=== PATIENT | female | born 1940 | race Caucasian/White ===

== ENCOUNTER 2017-10-28 13:24 | Emergency (ER) | payer OTHER ==
[2017-10-28] MEDS: ALPRAZolam 0.5 MG TAB PO (14:46)
== END 2017-10-28 15:36 | disposition home or self-care (01) ==
LOC: M ED 13:24
DX: F43.0 Acute stress reaction (principal); F41.1 Generalized anxiety disorder; I11.9 Hypertensive heart disease without heart failure; K21.9 Gastro-esophageal reflux disease without esophagitis; F99 Mental disorder, not otherwise specified; Z87.891 Personal history of nicotine dependence; Z88.2 Allergy status to sulfonamides; Z88.8 Allergy status to other drugs, medicaments and biological substances; Z79.899 Other long term (current) drug therapy
CPT/HCPCS: 99284

== ENCOUNTER 2024-07-14 18:43 | Emergency (ER) | payer MEDICARE, OTHER ==
[~2024-07-14 18:43] MED LIST: AMLO10TA PO; CALC1TAB21 PO; CEFD1CAP9 PO; CLON-952 PO; CRAN250T PO; EVIS1TAB PO; FERR325T3 PO; FISH100049 PO; FLUO40CA PO; HYDR50TA70; KLON0.5T8 PO; LEVO175T19 PO; MELO7.5T7; METO1TAB63 PO; OMEP1CAP73 PO; RANI75TA15 PO; REME45TA PO; SERT25TA21; SIMV20TA22 PO; VITMTA PO
[2024-07-14 22:04] VITALS: BP 156/69; TEMP 98.5; O2SAT 97
== END 2024-07-14 22:05 | disposition home or self-care (01) ==
LOC: EDBD 18:43 → M ED 18:43
DX: F32.A Depression, unspecified (principal); K21.9 Gastro-esophageal reflux disease without esophagitis; I10 Essential (primary) hypertension; F32.9 Major depressive disorder, single episode, unspecified; Z88.2 Allergy status to sulfonamides; Z88.8 Allergy status to other drugs, medicaments and biological substances; Z79.899 Other long term (current) drug therapy

== ENCOUNTER 2024-08-04 16:38 | Observation (INO) | payer MEDICARE, MEDICAID ==
[~2024-08-04] VITALS: Ht 149.9 cm; Wt 63.0 kg
[~2024-08-04 16:38] MED LIST changes: +AMLO-751 PO; -AMLO10TA PO
[2024-08-04 17:11] LABS: BASO % 0.1 % (0.0-1.0); EOS # 0.2 10^3/uL (0.0-0.5); EOS % 2.2 % (0.0-3.0); HEMATOCRIT 34.7 % (36.0-47.0); HEMOGLOBIN 10.4 g/dl (12.0-15.5); LYMPH # 1.7 10^3/uL (1.5-5.0); LYMPH % 22.9 % (24.0-44.0); MEAN CORPUSCULAR HEMOGLOBIN 21.5 pg (27.0-33.0); MEAN CORPUSCULAR VOLUME 71.8 fl (80.0-96.0); MONO # 0.5 10^3/uL (0.0-0.8); MONO % 7.4 % (2.0-8.0); NEUTROPHILS # 4.9 10^3/uL (1.5-8.5); NEUTROPHILS % 67.1 % (36.0-66.0); PLATELET COUNT, AUTOMATED 161 10^3/uL (150-450); RED BLOOD COUNT 4.83 10^6/uL (4.00-5.40); WHITE BLOOD COUNT 7.3 10^3/uL (4.0-10.0)
[2024-08-04] MEDS: NS 500 ML IV ONE ×3 (17:15→19:05)
[2024-08-04 17:29] LABS: ABG BASE EXCESS 3.3 (-2.0-2.0); ABG HCO3 27.3 MMOL/L (22.0-26.0); ABG O2 SATURATION 96.9 % (95.0-99.0); ABG PARTIAL PRESSURE CO2 39.2 mmHg (35.0-45.0); ABG PARTIAL PRESSURE O2 89.2 mmHg (75.0-100.0); ABG STANDARD HCO3 27.4 MMOL/L. (22.0-26.0); ABG TOTAL CO2 28.5 MMOL/L (23.0-31.0); ABG pH (ARTERIAL) 7.461 UNITS (7.350-7.450)
[2024-08-04] MEDS: CHARCOAL ACTIVATED LIQUID 25GM/120ML BTL PO ONE (17:34)
[2024-08-04 17:38] LABS: AMPHETAMINES LEVEL URINE NEGATIVE (NEGATIVE); BARBITURATES URINE NEGATIVE (NEGATIVE); CANNABINOIDS URINE NEGATIVE (NEGATIVE); COCAINE METABOLITE URINE NEGATIVE (NEGATIVE); PHENCYCLIDINE URINE NEGATIVE (NEGATIVE)
[2024-08-04 17:38] LABS: ETHYL ALCOHOL (ETHANOL) < 0.003 % (0.000-0.010)
[2024-08-04 17:39] LABS: BENZODIAZEPINES URINE NEGATIVE (NEGATIVE); METHADONE URINE NEGATIVE (NEGATIVE); OPIATES URINE NEGATIVE (NEGATIVE)
[2024-08-04 17:40] LABS: CPK CREATINE PHOSPHOKINASE 41 U/L (34-145); SALICYLATE LEVEL < 3.0 MG/DL (<30)
[2024-08-04 17:42] LABS: THYROID STIMULATING HORMONE 0.042 uIU/ML (0.55-4.78)
[2024-08-04 17:50] LABS: ALBUMIN 3.5 G/DL (3.2-5.2); ALKALINE PHOSPHATASE 127 U/L (35-104); ALT/SGPT 35 U/L (7.0-40); AST/SGOT 41 U/L (<34); BILIRUBIN,DIRECT < 0.1 MG/DL (<0.4); BILIRUBIN,TOTAL 0.6 MG/DL (0.3-1.2); BLOOD UREA NITROGEN 10 MG/DL (9-23); CALCIUM LEVEL 9.2 MG/DL (8.3-10.6); CARBON DIOXIDE LEVEL 27 MMOL/L (20-31); CHLORIDE LEVEL 106 MMOL/L (98-107); CK-MB VALUE MASS < 1.0 NG/ML (<3.6); CREATININE FOR GFR 0.45 MG/DL (0.55-1.30); GLOMERULAR FILTRATION RATE > 90.0 (>32); GLUCOSE, FASTING 111 MG/DL (74-106); MAGNESIUM LEVEL 1.9 MG/DL (1.8-2.4); MB/CK RELATIVE INDEX 2.43 (< OR =4); POTASSIUM SERUM 4.2 MMOL/L (3.5-5.1); SODIUM LEVEL 142 MMOL/L (136-145); TOTAL PROTEIN 6.7 G/DL (5.7-8.2)
[2024-08-04] MEDS: MAG SULF 1GM/100ML (MAG RUN) 1 GM in IV 1 EA IV ONE (19:13)
[2024-08-04 20:05] LABS: CK-MB VALUE MASS < 1.0 NG/ML (<3.6)
[2024-08-04 20:14] LABS: CPK CREATINE PHOSPHOKINASE 31 U/L (34-145); MB/CK RELATIVE INDEX 3.22 (< OR =4)
[2024-08-04] MEDS ORDERED: CLON0.5T2 PO (20:47)
[2024-08-04] MEDS ORDERED: LEVO300T21 PO (20:47)
[2024-08-04] MEDS ORDERED: HOME MED LIST COMPLETE! XX SCH (20:50)
[2024-08-04 23:30] VITALS: BP 118/55; TEMP 98.1; O2SAT 94
[2024-08-05 03:47] VITALS: BP 102/46; TEMP 98.4; O2SAT 97
[2024-08-05 03:49] LABS: HEMATOCRIT 31.9 % (36.0-47.0); HEMOGLOBIN 9.2 g/dl (12.0-15.5); MEAN CORPUSCULAR HGB CONC 28.8 g/dl (32.0-36.5); MEAN CORPUSCULAR VOLUME 72.7 fl (80.0-96.0); PLATELET COUNT, AUTOMATED 135 10^3/uL (150-450); RED BLOOD COUNT 4.39 10^6/uL (4.00-5.40); WHITE BLOOD COUNT 6.7 10^3/uL (4.0-10.0)
[2024-08-05 04:40] LABS: BLOOD UREA NITROGEN 9 MG/DL (9-23); CALCIUM LEVEL 8.7 MG/DL (8.3-10.6); CARBON DIOXIDE LEVEL 26 MMOL/L (20-31); CHLORIDE LEVEL 107 MMOL/L (98-107); CREATININE FOR GFR 0.44 MG/DL (0.55-1.30); GLOMERULAR FILTRATION RATE > 90.0 (>32); GLUCOSE, FASTING 106 MG/DL (74-106); MAGNESIUM LEVEL 2.4 MG/DL (1.8-2.4); SODIUM LEVEL 143 MMOL/L (136-145)
[2024-08-05] MEDS: LEVOTHYROXINE 150MCG TABLET (0.15MG) PO SCH (05:30)
[2024-08-05] MEDS: ENOXAPARIN 40MG/0.4ML SYRINGE (J1650 PER 10MG) SC SCH (09:00)
[2024-08-05 12:00] VITALS: BP 142/53; TEMP 98.1; O2SAT 96
[2024-08-05] MEDS: MIRALAX *UNIT DOSE* 17GM PACKET PO SCH (15:07)
[2024-08-05 20:27] VITALS: BP 141/84; TEMP 98.4; O2SAT 98
[2024-08-06 02:55] VITALS: BP 143/56; TEMP 97.9; O2SAT 96
[2024-08-06 03:21] LABS: AMORPHOUS SEDIMENT SMALL (NEGATIVE); APPEARANCE, URINE HAZY (CLEAR); BACTERIA, URINE AUTO NEGATIVE (NEGATIVE); BILIRUBIN, URINE AUTO NEGATIVE (NEGATIVE); BLOOD, URINE BLOOD NEGATIVE (NEGATIVE); COLOR, URINE YELLOW (YELLOW); GLUCOSE, URINE (UA) AUTO NEGATIVE (NEGATIVE); KETONE, URINE AUTO NEGATIVE (NEGATIVE); LEUKOCYTE ESTERASE, URINE AUTO TRACE (NEGATIVE); MUCUS, URINE SMALL (NEGATIVE); NITRITE, URINE AUTO NEGATIVE (NEGATIVE); PROTEIN, URINE AUTO NEGATIVE (NEGATIVE); RBC, URINE AUTO 1 /HPF (0-3); SPECIFIC GRAVITY URINE AUTO 1.015 (1.002-1.035); SQUAMOUS EPITHELIAL CELL UR AU 2 /HPF (0-6); UROBILINOGEN, URINE AUTO 0.2 mg/dL (0.0-2.0); WBC, URINE AUTO 6 /HPF (0-3)
[2024-08-06 12:00] VITALS: BP 157/70; TEMP 97.3; O2SAT 98
[2024-08-06 15:33] VITALS: BP 151/68; TEMP 97.9; O2SAT 97
[2024-08-06] MEDS ORDERED: CLON0.5T17 PO (22:18)
== END 2024-08-06 15:58 ==
LOC: M ED 16:38 → EDBD 16:38 → M ED INP 16:39 → M MSPAV 23:32
PROVIDERS: ADMIT Family Medicine; ATTEND Internal Medicine
DX: T14.91XA Suicide attempt, initial encounter (principal); T42.4X2A Poisoning by benzodiazepines, intentional self-harm, initial encounter; T43.292A Poisoning by other antidepressants, intentional self-harm, initial encounter; I45.81 Long QT syndrome; R45.851 Suicidal ideations; F41.9 Anxiety disorder, unspecified; F32.A Depression, unspecified; E03.9 Hypothyroidism, unspecified; I10 Essential (primary) hypertension; E78.5 Hyperlipidemia, unspecified; K21.9 Gastro-esophageal reflux disease without esophagitis; N39.0 Urinary tract infection, site not specified; Z79.899 Other long term (current) drug therapy
CPT/HCPCS: 36415; 36600; 51702; 80048; 80076; 80143; 80307; 81001; 82077; 82550; 82553; 82803; 83735; 84443; 84484; 85025; 85027; 93005; 93041; 94760; 96361; 96372; 96374; 96376; 97161; 97165; 97530; 97535; 99285; G0378; J1650; J3475

== ENCOUNTER 2024-08-06 12:14 | Inpatient (IN) | payer MEDICARE, MEDICAID ==
[~2024-08-06] VITALS: Ht 149.9 cm; Wt 61.4 kg
[~2024-08-06 12:14] MED LIST changes: +CLON0.5T2 PO; +LEVO300T21 PO
[2024-08-06] MEDS ORDERED: IBUPROFEN 400MG TAB PO PRN (15:00)
[2024-08-06] MEDS ORDERED: traZODone 50 MG TAB PO PRN (15:00)
[2024-08-06] MEDS ORDERED: diphenhydrAMINE 25MG CAP PO PRN (15:00)
[2024-08-06] MEDS ORDERED: MOM 30ML SUSPENSION UDC PO PRN (15:00)
[2024-08-06] MEDS ORDERED: ACETAMINOPHEN 325 MG TAB PO PRN (15:00)
[2024-08-06] MEDS ORDERED: OLANZapine 5 MG TAB PO PRN (15:00)
[2024-08-06] MEDS ORDERED: MAALOX 30 ML SUSP *UDC PO PRN (15:00)
[2024-08-06 16:05] VITALS: BP 149/65; TEMP 98.9; O2SAT 98
[2024-08-06] MEDS ORDERED: CLON0.5T17 PO (22:18)
[2024-08-06] MEDS ORDERED: HOME MED LIST COMPLETE! XX SCH (22:20)
[2024-08-07] MEDS: LEVOTHYROXINE 125MCG TABLET (0.125MG) PO SCH (05:59)
[2024-08-07] MEDS ORDERED: LEVOTHYROXINE 100MCG TABLET (0.1MG) PO SCH (06:00)
[2024-08-07 06:35] VITALS: BP 137/63; TEMP 98.1; O2SAT 97
[2024-08-07 07:19] LABS: THYROID STIMULATING HORMONE 0.066 uIU/ML (0.55-4.78); THYROXINE (T4) 18.3 UG/DL (4.5-10.9)
[2024-08-07 07:21] LABS: FREE THYROXINE INDEX 6.6 % (1.3-4.8); T UPTAKE 36.2 % (22.5-37.0)
[2024-08-07] MEDS: ESCITALOPRAM OXALATE 10 MG TAB (LEXAPRO) PO SCH (09:04)
[2024-08-07] MEDS: clonazePAM 0.5 MG TAB PO SCH (10:43)
[2024-08-07 15:31] VITALS: BP 125/58; TEMP 98; O2SAT 97
[2024-08-08 06:27] VITALS: BP 136/62; TEMP 97.5; O2SAT 98
[2024-08-08 15:53] VITALS: BP 122/64; TEMP 97.2; O2SAT 96
[2024-08-09 06:30] VITALS: BP 166/72; TEMP 98; O2SAT 98
[2024-08-09 15:58] VITALS: BP 138/72; TEMP 98.2; O2SAT 97
[2024-08-09] MEDS: QUEtiapine FUMARATE 25 MG TAB PO SCH (20:53)
[2024-08-10 06:29] VITALS: BP 123/57; TEMP 96.8; O2SAT 99
[2024-08-10 06:50] LABS: THYROID STIMULATING HORMONE 0.031 uIU/ML (0.55-4.78)
[2024-08-10 06:51] LABS: FREE T4 1.94 NG/DL (0.89-1.76)
[2024-08-10 13:14] LABS: THYROID PEROXIDASE ANTIBODY < 28.0 U/ML (<60.0)
[2024-08-10 15:28] VITALS: BP 156/70; TEMP 97.9; O2SAT 94
[2024-08-11 06:42] VITALS: BP 109/59; TEMP 97.6; O2SAT 95
[2024-08-11] MEDS ORDERED: LEXA1TAB PO (08:50)
[2024-08-11] MEDS ORDERED: HYDR-4570 PO (08:50)
[2024-08-11] MEDS ORDERED: QUET1TAB17 PO (08:50)
[2024-08-11] MEDS ORDERED: LEVO100T5 PO (08:50)
[2024-08-11] MEDS ORDERED: CLON0.5T2 PO (08:51)
[2024-08-14] MEDS ORDERED: LEVOTHYROXINE 100MCG TABLET (0.1MG) PO SCH (06:00)
== END 2024-08-11 14:44 | disposition home or self-care (01) | DRG 885 ==
LOC: M PSY 16:01
PROVIDERS: ADMIT Psychiatry & Neurology Psychiatry; ATTEND Psychiatry & Neurology Psychiatry
DX: F33.2 Major depressive disorder, recurrent severe without psychotic features (principal); F41.1 Generalized anxiety disorder; T42.4X2A Poisoning by benzodiazepines, intentional self-harm, initial encounter; T14.91XA Suicide attempt, initial encounter; I10 Essential (primary) hypertension; E05.80 Other thyrotoxicosis without thyrotoxic crisis or storm; E78.5 Hyperlipidemia, unspecified; E03.9 Hypothyroidism, unspecified; K21.9 Gastro-esophageal reflux disease without esophagitis; K76.0 Fatty (change of) liver, not elsewhere classified; Z81.1 Family history of alcohol abuse and dependence; Z79.890 Hormone replacement therapy; Z79.899 Other long term (current) drug therapy; Z88.2 Allergy status to sulfonamides; Z88.8 Allergy status to other drugs, medicaments and biological substances